=== PATIENT | female | born 1955 | race Caucasian/White ===

== ENCOUNTER 2024-09-17 14:28 | Day surgery (SDC) | payer MEDICARE ==
[2024-09-17] MEDS: Phenylephrine 2.5% Ophth Soln 2 ML Bot EYELF SCH (12:11)
[2024-09-17] MEDS: Brimonidine 0.2% Ophth Soln 5 ML Bottle EYELF SCH (12:12)
[2024-09-17] MEDS: Lidocaine 1% PF 2 ML SDV INJECT SCH (12:12)
[2024-09-17] MEDS: Polymyxin B/Trimethoprim 10 ML Bottle EYELF SCH (12:12)
[2024-09-17] MEDS: Tetracaine HCl/PF 0.5% 4 ML Bottle EYEBOTH SCH (12:12)
[2024-09-17] MEDS: Cefuroxime 10 MG/ML SYRINGE EYELF SCH (12:12)
[2024-09-17] MEDS: Pilocarpine 4% Ophth Soln 15 ML Bot EYELF SCH (12:12)
[2024-09-17] MEDS: Tropicamide 1% Ophth Soln 3 ML Bottle EYELF SCH (15:37)
== END 2024-09-17 17:26 | disposition home or self-care (01) ==
LOC: JD.SDS 14:28
PROVIDERS: ATTEND Ophthalmology
DX: E11.36 Type 2 diabetes mellitus with diabetic cataract (principal); H25.813 Combined forms of age-related cataract, bilateral; F32.A Depression, unspecified; I10 Essential (primary) hypertension; K21.9 Gastro-esophageal reflux disease without esophagitis; E78.2 Mixed hyperlipidemia; E11.3293 Type 2 diabetes mellitus with mild nonproliferative diabetic retinopathy without macular edema, bilateral; H18.413 Arcus senilis, bilateral; H16.103 Unspecified superficial keratitis, bilateral; H16.223 Keratoconjunctivitis sicca, not specified as Sjogren's, bilateral; Z79.4 Long term (current) use of insulin; Z79.84 Long term (current) use of oral hypoglycemic drugs; Z79.899 Other long term (current) drug therapy; F17.200 Nicotine dependence, unspecified, uncomplicated
CPT/HCPCS: A9270-GY; J0697; J3490

== ENCOUNTER 2024-10-15 09:13 | Day surgery (SDC) | payer MEDICARE ==
[2024-10-15] MEDS: Lidocaine 1% PF 2 ML SDV INJECT SCH (09:00)
[2024-10-15] MEDS: Phenylephrine 2.5% Ophth Soln 2 ML Bot EYERT SCH (09:00)
[2024-10-15] MEDS: Tetracaine HCl/PF 0.5% 4 ML Bottle EYEBOTH SCH (09:00)
[2024-10-15] MEDS: Cefuroxime 10 MG/ML SYRINGE EYERT SCH (09:00)
[2024-10-15] MEDS: Pilocarpine 4% Ophth Soln 15 ML Bot EYERT SCH (09:01)
[2024-10-15] MEDS: Brimonidine 0.2% Ophth Soln 5 ML Bottle EYERT SCH (09:01)
[2024-10-15] MEDS: Polymyxin B/Trimethoprim 10 ML Bottle EYERT SCH (09:01)
[2024-10-15] MEDS: Tropicamide 1% Ophth Soln 3 ML Bottle EYERT SCH (10:35)
== END 2024-10-15 12:11 | disposition home or self-care (01) ==
LOC: JD.SDS 09:13
PROVIDERS: ATTEND Ophthalmology
DX: E11.36 Type 2 diabetes mellitus with diabetic cataract (principal); H25.811 Combined forms of age-related cataract, right eye; E11.3293 Type 2 diabetes mellitus with mild nonproliferative diabetic retinopathy without macular edema, bilateral; I10 Essential (primary) hypertension; K21.9 Gastro-esophageal reflux disease without esophagitis; E78.2 Mixed hyperlipidemia; F32.A Depression, unspecified; Z79.899 Other long term (current) drug therapy; F17.200 Nicotine dependence, unspecified, uncomplicated
CPT/HCPCS: 66984; A9270; J0697; J3490

== ENCOUNTER 2025-02-10 07:50 | Day surgery (SDC) | payer MEDICARE ==
[~2025-02-10 07:50] MED LIST: Sodium Chloride 0.9% 10 ML Syringe FLUSH PRN; Sodium Chloride 0.9% 10 ML Syringe FLUSH SCH
[2025-02-10] MEDS: Lactated Ringers 1,000 ML IV SCH (08:00)
[2025-02-10] MEDS ORDERED: Propofol 200 MG/20 ML SDV ONE ×2 (08:35→09:57)
[2025-02-10] MEDS ORDERED: Lidocaine 1% 4 ML ONE (08:35)
[2025-02-10] MEDS ORDERED: Lactated Ringers 1,000 ML ONE (09:33)
[2025-02-10] MEDS ORDERED: ePHEDrine 50 MG/ML SDV ONE (09:53)
== END 2025-02-10 11:40 | disposition home or self-care (01) ==
LOC: JD.SDS 07:50
PROVIDERS: ATTEND Surgery
DX: Z12.11 Encounter for screening for malignant neoplasm of colon (principal); D12.4 Benign neoplasm of descending colon; D12.0 Benign neoplasm of cecum; D12.3 Benign neoplasm of transverse colon; K64.4 Residual hemorrhoidal skin tags; K64.8 Other hemorrhoids; K57.90 Diverticulosis of intestine, part unspecified, without perforation or abscess without bleeding; I12.9 Hypertensive chronic kidney disease with stage 1 through stage 4 chronic kidney disease, or unspecified chronic kidney disease; E11.22 Type 2 diabetes mellitus with diabetic chronic kidney disease; N18.2 Chronic kidney disease, stage 2 (mild); E78.5 Hyperlipidemia, unspecified; F17.210 Nicotine dependence, cigarettes, uncomplicated; Z79.84 Long term (current) use of oral hypoglycemic drugs; Z86.0101 Personal history of adenomatous and serrated colon polyps; Z79.899 Other long term (current) drug therapy
CPT/HCPCS: 45380; 45385; J2003; J2704; J7120; 00811; 88305; J3490